=== PATIENT | male | born 1960 | race Caucasian/White ===

== ENCOUNTER 2017-05-26 08:43 | Inpatient (IN) | payer OTHER ==
[2017-05-26 09:18] VITALS: BP 189/90; PULSE 95; TEMP 98.9; BMI 27.7
[2017-05-26] MEDS ORDERED: SODIUM CHLORIDE 1,000 ML IV STA ×2 (09:29→13:09)
[2017-05-26] MEDS ORDERED: METOCLOPRAMIDE HCL INJECTION 10 MG/2 ML VIAL IVPUSH ONE (09:29)
[2017-05-26] MEDS ORDERED: METOCLOPRAMIDE HCL INJECTION 10 MG/2 ML VIAL ONE (09:36)
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
[2017-05-26] MEDS ORDERED: KETOROLAC TROMETHAMINE 30 MG/1 ML VIAL IVPUSH ONE (10:04)
[2017-05-26 11:02] LABS: BASO % 0.5 % (0-2.0); EOS % 0.4 % (0-4.5); HEMATOCRIT 49.3 % (35.4-49); LYMPH % 12.4 % (8-40); MCHC 32.4 g/dl (32.0-35.9); MEAN CELL VOLUME 92.5 fl (80-96); MEAN PLT VOLUME 9.9 fl (7.5-11.1); MONO % 5.9 % (3.8-10.2); NEUT % 80.8 % (42.8-82.8); PLATELET COUNT 180 K/MM3 (134-434); RBC 5.33 M/mm3 (4.00-5.60); RDW 13.5 % (11.9-15.9); WHITE BLOOD COUNT 13.5 K/mm3 (4.0-10.0)
[2017-05-26 11:13] LABS: ALBUMIN 4.2 g/dl (3.4-5.0); ANION GAP 7 (8-16); BILIRUBIN,TOTAL 0.7 mg/dL (0.2-1.0); BLOOD UREA NITROGEN 9 mg/dL (7-18); CALCIUM 9.5 mg/dL (8.5-10.1); CHLORIDE 106 mmol/L (98-107); CO2 27 mmol/L (21-32); CREATININE 0.9 mg/dL (0.7-1.3); GLUCOSE,RANDOM 94 mg/dL (74-106); LIPASE 132 U/L (73-393); SGOT/AST 56 U/L (15-37); SGPT/ALT 105 U/L (12-78); SODIUM 140 mmol/L (136-145)
[2017-05-26 11:14] LABS: ALK PHOS 141 U/L (45-117)
[2017-05-26] MEDS ORDERED: morphine CARPU-JECT 4 MG/1 ML DISP.SYRIN IVPUSH ONE (12:57)
[2017-05-26] MEDS ORDERED: KETOROLAC TROMETHAMINE 30 MG/1 ML VIAL ONE (13:36)
--- NOTE | 2017-05-26 13:54 | CONSULT ---
Consult Consult Specialty:: general surgery Referred by:: lynne turcios - ED Reason for Consultation:: abdominal pain - History of Present Illness Chief Complaint: abdominal pain History of Present Illness: 56yo male PMH seizure disorder, glioblastoma multiforme?, hep C, and hypertension, presented with reported acute onset right upper abdominal pain at 5AM. No association with meals. pain is focal to the right upper quadrant that has been ongoing for several days, worsened this morning with several episodes of non-bloody, non-bilious nausea, vomiting. Denies fevers but felt chills. Known history of gallstones, an previous episodes of biliary colic, planned to see Dr. Drummond but pain returned prior to his scheduled appointment. No change in bowel movements, dysuria or hematuria. He has had previous unknown laparoscopic abdominal surgery in the . We were asked to assess. 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, Other (Glioblastoma Multiforme) Cardio/Vascular: Yes: HTN Hepatobiliary: Yes: Hepatitis C Psych: Yes: Anxiety - Alcohol/Substance Use Hx Alcohol Use: No - Smoking History Smoking history: Never smoked Have you smoked in the past 12 months: Yes Aproximately how many cigarettes per day: 8 Home Medications - Allergies Allergies/Adverse Reactions: Allergies Allergy/AdvReac Type Severity Reaction Status Date / Time Penicillins Allergy Verified 05/26/17 09:18 - Home Medications Home Medications: Ambulatory Orders FENTANYL 75mcg PATCH [DURAGESIC 75mcg PATCH -] 1 each TD Q72H 11/05/14 Diclofenac Sodium [Diclofenac Sodium ER] 50 mg PO BID 11/13/14 Baclofen [Lioresal -] 10 mg PO TID 12/06/15 Lacosamide [Vimpat -] 100 mg PO BID 12/06/15 Metoclopramide HCl [Reglan] 5 mg PO AC 12/06/15 Quetiapine Fumarate [Seroquel -] 25 mg PO HS 12/06/15 Ranitidine [Zantac -] 150 mg PO BID 12/06/15 Zolpidem Tartrate [Ambien] 10 mg PO HS 12/06/15 Review of Systems - Review of Systems Constitutional: reports: Chills. denies: Diaphoresis, Fever, Weakness Eyes: denies: Blurred Vision, Recent Change in Vision HENT: reports: Other (missing central and lateral inscisors). denies: Difficult Swallowing, Throat Pain Neck: denies: Lumps, Swollen Glands Cardiovascular: denies: Chest Pain, Palpitations Respiratory: denies: Cough, SOB Gastrointestinal: reports: Abdominal Pain. denies: Constipation, Diarrhea, Indigestion Genitourinary: reports: Flank Pain (right flank pain). denies: Burning, Discharge Musculoskeletal: denies: Extremity Pain, Muscle Weakness Integumentary: denies: Lesions, Rash Neurological: reports: Seizure. denies: Change in LOC, Syncope Endocrine: denies: Excessive Sweating, Flushing Hematology/Lymphatic: denies: Easily Bruised, Excessive Bleeding Psychiatric: reports: Anxiety Pain Intensity: 8 Physical Exam Vital Signs: Vital Signs Temperature 98.9 F 05/26/17 08:43 Pulse Rate 95 H 05/26/17 08:43 Respiratory Rate 18 05/26/17 08:43 Blood Pressure 189/90 05/26/17 08:43 O2 Sat by Pulse Oximetry (%) 100 05/26/17 08:43 Vital Signs Period Temp Pulse Resp BP Sys/Howell Pulse Ox Last 24 Hr 98.9 F 95 18 189/90 100 Constitutional: Yes: Well Nourished, Calm, Mild Distress Eyes: Yes: Conjunctiva Clear, EOM Intact HENT: Yes: Atraumatic, Normocephalic Cardiovascular: Yes: Regular Rate and Rhythm, S1, S2. No: Murmur Respiratory: Yes: Regular, CTA Bilaterally Gastrointestinal: Yes: Normal Bowel Sounds, Soft, Palpable Mass (RUQ palpable GB below liver margin), Tenderness (RUQ tenderness and +murphys sign.), Tenderness, Epigastrium, Tenderness, Rebound. No: Distention, Vomiting ...Rectal Exam: Yes: Deferred Renal/: Yes: CVA Tenderness - Right (equivocal on CVA punches, referred anterior pain.). No: CVA Tenderness - Left Extremities: No: Cool, Cyanosis Edema: No Peripheral Pulses WNL: Yes Integumentary: No: Jaundice, Rash Wound/Incision: Yes: Clean/Dry, Well Approximated Neurological: Yes: Alert, Oriented Psychiatric: Yes: Alert, Oriented Labs: CBC,CMP WBC 13.5 K/mm3 (4.0-10.0) H D 05/26/17 10:45 RBC 5.33 M/mm3 (4.00-5.60) 05/26/17 10:45 Hgb 16.0 GM/dL (11.7-16.9) 05/26/17 10:45 Hct 49.3 % (35.4-49) H 05/26/17 10:45 MCV 92.5 fl (80-96) 05/26/17 10:45 MCH 30.0 pg (25.7-33.7) 05/26/17 10:45 MCHC 32.4 g/dl (32.0-35.9) 05/26/17 10:45 RDW 13.5 % (11.9-15.9) 05/26/17 10:45 Plt Count 180 K/MM3 (134-434) 05/26/17 10:45 MPV 9.9 fl (7.5-11.1) 05/26/17 10:45 Neutrophils % 80.8 % (42.8-82.8) D 05/26/17 10:45 Lymphocytes % 12.4 % (8-40) D 05/26/17 10:45 Monocytes % 5.9 % (3.8-10.2) 05/26/17 10:45 Eosinophils % 0.4 % (0-4.5) D 05/26/17 10:45 Basophils % 0.5 % (0-2.0) 05/26/17 10:45 Sodium 140 mmol/L (136-145) 05/26/17 10:45 Potassium 4.0 mmol/L (3.5-5.1) 05/26/17 10:45 Chloride 106 mmol/L (98-107) 05/26/17 10:45 Carbon Dioxide 27 mmol/L (21-32) 05/26/17 10:45 Anion Gap 7 (8-16) L 05/26/17 10:45 BUN 9 mg/dL (7-18) D 05/26/17 10:45 Creatinine 0.9 mg/dL (0.7-1.3) D 05/26/17 10:45 Creat Clearance w eGFR > 60 (>60) 05/26/17 10:45 Random Glucose 94 mg/dL (74-106) 05/26/17 10:45 Calcium 9.5 mg/dL (8.5-10.1) 05/26/17 10:45 Total Bilirubin 0.7 mg/dL (0.2-1.0) D 05/26/17 10:45 AST 56 U/L (15-37) H D 05/26/17 10:45 ALT 105 U/L (12-78) H 05/26/17 10:45 Alkaline Phosphatase 141 U/L (45-117) H D 05/26/17 10:45 Total Protein 9.0 g/dl (6.4-8.2) H 05/26/17 10:45 Albumin 4.2 g/dl (3.4-5.0) 05/26/17 10:45 Lipase 132 U/L (73-393) 05/26/17 10:45 Imaging - Results Cat Scan: Report Reviewed, Image Reviewed (Large distended GB with stones) Ultrasound: Report Reviewed, Image Reviewed (Abd US 10.23cm GB very distended, 0.27cm CBD, no thickening or percholecystic fluid, stones at the neck) Problem List - Problems (1) Calculous cholecystitis with obstruction Assessment/Plan: 56yo male with MMP presents with right upper abdominal pain, US shows a 10cm distended GB with stones, CBD 0.27cm. WBC 13.5, Tbili 0.7 and transaminitis, Lisa class. previous CT shows the same, on exam he has +brush's and exquisitely tender. clears now, NPO after midnight IVF hydration antiemetic repeat labs in AM stat keppra level Plan for OR for urgent Laparoscopic Cholecystectomy possible Open Cholecystectomy -- Discussed with patient risks, benefits and alternatives of laparoscopic possible open cholecystectomy, including but not limited to bleeding, infection, injury to adjacent structures, leak or injury, intraabdominal abscess, need for further procedures, ; alternatives include antibiotics, delayed or no surgery - risks of this include failure of nonoperative therapy, perforation, sepsis, recurrence, . Patient desires to proceed with operation - will take to OR for above. Informed consent signed for same. Code(s): K80.01 - CALCULUS OF GALLBLADDER W ACUTE CHOLECYSTITIS W OBSTRUCTION (2) Right upper quadrant pain Code(s): R10.11 - RIGHT UPPER QUADRANT PAIN (3) Seizures Code(s): R56.9 - UNSPECIFIED CONVULSIONS Qualifiers: Convulsion type: unspecified Qualified Code(s): R56.9 - Unspecified convulsions (4) Hypertension Code(s): I10 - ESSENTIAL (PRIMARY) HYPERTENSION (5) Hepatitis C Code(s): B19.20 - UNSPECIFIED VIRAL HEPATITIS C WITHOUT HEPATIC COMA (6) Renal colic on right side Code(s): N23 - UNSPECIFIED RENAL COLIC
[2017-05-26] MEDS ORDERED: ONDANSETRON 4 MG/2 ML VIAL IVPB ONE (14:00)
[2017-05-26] MEDS ORDERED: levETIRAcetam 500 MG TABLET (FP) PO ONE ×2 (14:23→14:53)
[2017-05-26] MEDS ORDERED: amLODIPine BESYLATE 5 MG TABLET (FP) PO ONE (14:23)
[2017-05-26] MEDS ORDERED: LISINOPRIL 20 MG TABLET (FP) PO ONE (14:23)
[2017-05-26] MEDS ORDERED: RANITIDINE HCL 150 MG TABLET (FP) PO ONE (14:24)
[2017-05-26] MEDS ORDERED: GABAPENTIN 300 MG CAPSULE (FP) PO ONE (14:24)
[2017-05-26] MEDS ORDERED: HYDROmorphone HCL CARPU-JECT 2 MG/1 ML DISP.SYRIN IVPB ONE (14:25)
[2017-05-26] MEDS ORDERED: LISINOPRIL 10 MG TABLET (FP) PO ONE (14:41)
[2017-05-26] MEDS ORDERED: HYDROmorphone HCL CARPU-JECT 2 MG/1 ML DISP.SYRIN ONE (14:52)
[2017-05-26] MEDS ORDERED: LISINOPRIL 5 MG TABLET (FP) ONE (14:53)
[2017-05-26] MEDS ORDERED: GABAPENTIN 100 MG CAPSULE (FP) ONE (14:53)
[2017-05-26] MEDS ORDERED: amLODIPine BESYLATE 5 MG TABLET (FP) ONE (14:53)
[2017-05-26] MEDS ORDERED: ONDANSETRON 4 MG/2 ML VIAL ONE (14:56)
[2017-05-26 16:17] LABS: HEMATOCRIT 46.1 % (35.4-49); HEMOGLOBIN 15.2 GM/dL (11.7-16.9); MCH 30.4 pg (25.7-33.7); MEAN CELL VOLUME 92.2 fl (80-96); MEAN PLT VOLUME 9.3 fl (7.5-11.1); PLATELET COUNT 179 K/MM3 (134-434); RDW 13.5 % (11.9-15.9); WHITE BLOOD COUNT 11.4 K/mm3 (4.0-10.0)
[2017-05-26 16:51] LABS: ALBUMIN 3.5 g/dl (3.4-5.0); ALK PHOS 116 U/L (45-117); ANION GAP 6 (8-16); BLOOD UREA NITROGEN 8 mg/dL (7-18); CALCIUM 8.3 mg/dL (8.5-10.1); CHLORIDE 111 mmol/L (98-107); CO2 26 mmol/L (21-32); CREATININE 0.6 mg/dL (0.7-1.3); GLUCOSE,RANDOM 93 mg/dL (74-106); SGOT/AST 45 U/L (15-37); SGPT/ALT 87 U/L (12-78); SODIUM 143 mmol/L (136-145); TOT PROT 7.5 g/dl (6.4-8.2)
[2017-05-26 17:41] LABS: BILIRUBIN,TOTAL 0.7 mg/dL (0.2-1.0)
[2017-05-26] MEDS ORDERED: Lacosamide 200 MG/20 ML VIAL IVPB SCH (22:00)
== END 2017-05-26 17:00 | disposition left against medical advice (07) ==
LOC: JER 08:43 → JERBED 14:30
PROVIDERS: ADMIT Family Medicine; ATTEND Family Medicine
DX: K80.01 Calculus of gallbladder with acute cholecystitis with obstruction (principal); I10 Essential (primary) hypertension; R10.11 Right upper quadrant pain; G40.909 Epilepsy, unspecified, not intractable, without status epilepticus; B19.20 Unspecified viral hepatitis C without hepatic coma; N23 Unspecified renal colic
CPT/HCPCS: 36415; 76705-TC; 76775-TC; 80053; 83690; 85025; 85027; 99283-25

== ENCOUNTER 2017-05-29 08:10 | Day surgery (SDC) | payer OTHER ==
[2017-05-29 08:20] VITALS: BMI 27.7
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
--- NOTE | 2017-05-29 08:27 | CONSULT ---
Consult Consult Specialty:: general surgery Referred by:: geovanni Reason for Consultation:: acute on chronic cholecystitis - History of Present Illness Chief Complaint: acute on chronic cholecystitis History of Present Illness: 56yo male PMH seizure disorder, glioblastoma multiforme?, hep C, and hypertension, presented with reported acute onset right upper abdominal pain at 5AM. No association with meals. pain is focal to the right upper quadrant that has been ongoing for several days, worsened this morning with several episodes of non-bloody, non-bilious nausea, vomiting. Denies fevers but felt chills. Known history of gallstones, an previous episodes of biliary colic, planned to see Dr. Drummond but pain returned prior to his scheduled appointment. No change in bowel movements, dysuria or hematuria. He has had previous unknown laparoscopic abdominal surgery in the . He eloped from the ED 2 days ago, He now returned for treatment. We were asked to assess. 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, Other (Glioblastoma Multiforme) Cardio/Vascular: Yes: HTN Hepatobiliary: Yes: Hepatitis C Psych: Yes: Anxiety - Alcohol/Substance Use Hx Alcohol Use: No - Smoking History Smoking history: Current every day smoker Have you smoked in the past 12 months: Yes Aproximately how many cigarettes per day: 10 Home Medications - Allergies Allergies/Adverse Reactions: Allergies Allergy/AdvReac Type Severity Reaction Status Date / Time Penicillins Allergy Verified 05/29/17 08:20 - Home Medications Home Medications: Ambulatory Orders FENTANYL 75mcg PATCH [DURAGESIC 75mcg PATCH -] 1 each TD Q72H 11/05/14 Diclofenac Sodium [Diclofenac Sodium ER] 50 mg PO BID 11/13/14 Baclofen [Lioresal -] 10 mg PO TID 12/06/15 Lacosamide [Vimpat -] 100 mg PO BID 12/06/15 Ranitidine [Zantac -] 150 mg PO BID 12/06/15 Amlodipine Besylate [Norvasc -] 5 mg PO DAILY 05/26/17 Gabapentin 300 mg PO DAILY 05/26/17 Keppra - 1,000 mg PO BID 05/26/17 Lisinopril 10 mg PO DAILY 05/26/17 Review of Systems - Review of Systems Constitutional: denies: Chills, Fever Eyes: denies: Blurred Vision, Recent Change in Vision HENT: denies: Difficult Swallowing, Throat Pain Neck: denies: Decreased ROM, Pain on Movement Cardiovascular: denies: Chest Pain, Palpitations Respiratory: denies: Cough, SOB Gastrointestinal: denies: Abdominal Pain, Constipation, Diarrhea Genitourinary: denies: Burning, Discharge Breasts: reports: No Symptoms Reported. denies: Pain Musculoskeletal: denies: Joint Pain, Joint Swelling Integumentary: denies: Lesions, Rash Neurological: denies: Seizure, Syncope Endocrine: denies: Unexplained Weight Gain, Unexplained Weight Loss Hematology/Lymphatic: denies: Easily Bruised, Excessive Bleeding Psychiatric: denies: Anxiety, Depression Physical Exam Vital Signs: Vital Signs Temperature 98.3 F 05/29/17 08:17 Pulse Rate 89 05/29/17 08:17 Respiratory Rate 20 05/29/17 08:17 Blood Pressure 113/66 05/29/17 08:17 O2 Sat by Pulse Oximetry (%) 96 05/29/17 08:17 Constitutional: Yes: No Distress, Calm Eyes: Yes: Conjunctiva Clear, EOM Intact HENT: Yes: Atraumatic, Normocephalic Neck: Yes: Supple, Trachea Midline Cardiovascular: Yes: Regular Rate and Rhythm, S1, S2 Respiratory: Yes: Regular, CTA Bilaterally Gastrointestinal: Yes: Normal Bowel Sounds, Soft, Tenderness (RUQ) ...Rectal Exam: Yes: Deferred Renal/: No: CVA Tenderness - Left, CVA Tenderness - Right Extremities: No: Cool, Cyanosis Integumentary: No: Jaundice, Rash Neurological: Yes: Alert, Oriented Psychiatric: Yes: Alert, Oriented Imaging - Results Cat Scan: Report Reviewed, Image Reviewed (10cm distended GB with large stone) Ultrasound: Report Reviewed, Image Reviewed (CBD 0.27) Problem List - Problems (1) Calculous cholecystitis with obstruction Assessment/Plan: 56yo male with MMP presents with right upper abdominal pain, US shows a 10cm distended GB with stones, CBD 0.27cm. WBC 13.5, Tbili 0.7 and transaminitis, Lisa class. previous CT shows the same, on exam he has +brush's and exquisitely tender. NPO after midnight IVF hydration antiemetic repeat labs in AM stat keppra level Plan for OR for urgent Laparoscopic Cholecystectomy possible Open Cholecystectomy -- Discussed with patient risks, benefits and alternatives of laparoscopic possible open cholecystectomy, including but not limited to bleeding, infection, injury to adjacent structures, leak or injury, intraabdominal abscess, need for further procedures, ; alternatives include antibiotics, delayed or no surgery - risks of this include failure of nonoperative therapy, perforation, sepsis, recurrence, . Patient desires to proceed with operation - will take to OR for above. Informed consent signed for same. Code(s): K80.01 - CALCULUS OF GALLBLADDER W ACUTE CHOLECYSTITIS W OBSTRUCTION (2) Abdominal pain Code(s): R10.9 - UNSPECIFIED ABDOMINAL PAIN (3) Hepatitis C Code(s): B19.20 - UNSPECIFIED VIRAL HEPATITIS C WITHOUT HEPATIC COMA (4) Hypertension Code(s): I10 - ESSENTIAL (PRIMARY) HYPERTENSION (5) Seizures Code(s): R56.9 - UNSPECIFIED CONVULSIONS Qualifiers: Convulsion type: unspecified Qualified Code(s): R56.9 - Unspecified convulsions
[2017-05-29] MEDS ORDERED: levETIRAcetam 500 MG TABLET (FP) PO ONE ×2 (08:45→08:51)
[2017-05-29 09:40] LABS: URINE APPEARANCE CLEAR; URINE BILIRUBIN NEGATIVE (NEGATIVE); URINE BLOOD 1+ (NEGATIVE); URINE COLOR AMBER; URINE GLUCOSE (UA) NEGATIVE (NEGATIVE); URINE KETONE NEGATIVE (NEGATIVE); URINE NITRITE NEGATIVE (NEGATIVE); URINE PROTEIN NEGATIVE (NEGATIVE); URINE UROBILINOGEN 4.0 E.U/dl mg/dL (0.2-1.0)
[2017-05-29 09:51] LABS: URINE LEUK ESTERASE 2+ (NEGATIVE)
[2017-05-29 09:51] LABS: BASO % 1.2 % (0-2.0); EOS % 2.3 % (0-4.5); HEMATOCRIT 48.3 % (35.4-49); LYMPH % 26.3 % (8-40); MCH 30.6 pg (25.7-33.7); MCHC 33.2 g/dl (32.0-35.9); MEAN CELL VOLUME 92.2 fl (80-96); MEAN PLT VOLUME 10.3 fl (7.5-11.1); MONO % 7.9 % (3.8-10.2); NEUT % 62.3 % (42.8-82.8); PLATELET COUNT 177 K/MM3 (134-434); RBC 5.23 M/mm3 (4.00-5.60); RDW 13.4 % (11.9-15.9); WHITE BLOOD COUNT 9.6 K/mm3 (4.0-10.0)
[2017-05-29 10:13] LABS: EPI CELLS RARE /HPF (FEW); URINE MUCUS MODERATE
[2017-05-29 10:37] LABS: ALBUMIN 3.9 g/dl (3.4-5.0); ALK PHOS 139 U/L (45-117); ANION GAP 8 (8-16); BILIRUBIN,TOTAL 0.8 mg/dL (0.2-1.0); BLOOD UREA NITROGEN 12 mg/dL (7-18); CALCIUM 8.9 mg/dL (8.5-10.1); CHLORIDE 107 mmol/L (98-107); CO2 26 mmol/L (21-32); CREATININE 0.7 mg/dL (0.7-1.3); GLUCOSE,RANDOM 80 mg/dL (74-106); LIPASE 110 U/L (73-393); SGPT/ALT 99 U/L (12-78); SODIUM 141 mmol/L (136-145); TOT PROT 8.5 g/dl (6.4-8.2)
[2017-05-29 10:45] LABS: POTASSIUM 4.4 mmol/L (3.5-5.1); SGOT/AST 68 U/L (15-37)
[2017-05-29] MEDS ORDERED: BUPIVACAINE HCL/PF 0.5% (5MG/ML) 10 ML VIAL ONE (10:50)
--- NOTE | 2017-05-29 11:09 | HP ---
Admitting History and Physical - Primary Care Physician PCP: Jodie Her - Admission Chief Complaint: cholecystitis History of Present Illness: 56yo male PMH seizure disorder, glioblastoma multiforme?, hep C, and hypertension, presented with reported acute onset right upper abdominal pain at 5AM. No association with meals. pain is focal to the right upper quadrant that has been ongoing for several days, worsened this morning with several episodes of non-bloody, non-bilious nausea, vomiting. Denies fevers but felt chills. Known history of gallstones, an previous episodes of biliary colic, planned to see Dr. Drummond but pain returned prior to his scheduled appointment. No change in bowel movements, dysuria or hematuria. He has had previous unknown laparoscopic abdominal surgery in the . He eloped from the ED 2 days ago, He now returned for treatment. 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, Other (Glioblastoma Multiforme) Cardiovascular: Yes: HTN Hepatobiliary: Yes: Hepatitis C Psych: Yes: Anxiety - Smoking History Smoking history: Current every day smoker Have you smoked in the past 12 months: Yes Aproximately how many cigarettes per day: 10 - Alcohol/Substance Use Hx Alcohol Use: No Home Medications - Allergies Allergies/Adverse Reactions: Allergies Allergy/AdvReac Type Severity Reaction Status Date / Time Penicillins Allergy Verified 05/29/17 08:20 - Home Medications Home Medications: Ambulatory Orders FENTANYL 75mcg PATCH [DURAGESIC 75mcg PATCH -] 1 each TD Q72H 11/05/14 Diclofenac Sodium [Diclofenac Sodium ER] 50 mg PO BID 11/13/14 Baclofen [Lioresal -] 10 mg PO TID 12/06/15 Lacosamide [Vimpat -] 100 mg PO BID 12/06/15 Ranitidine [Zantac -] 150 mg PO BID 12/06/15 Amlodipine Besylate [Norvasc -] 5 mg PO DAILY 05/26/17 Gabapentin 300 mg PO DAILY 05/26/17 Keppra - 1,000 mg PO BID 05/26/17 Lisinopril 10 mg PO DAILY 05/26/17 Review of Systems - Review of Systems Constitutional: denies: Chills, Fever Eyes: denies: Blind Spots, Recent Change in Vision HENT: denies: Difficult Swallowing, Throat Pain Cardiovascular: denies: Chest Pain, Palpitations Respiratory: denies: Cough, Exercise Intolerance Gastrointestinal: reports: Abdominal Pain Genitourinary: denies: Burning, Discharge Musculoskeletal: reports: Back Pain Integumentary: denies: Lesions, Rash Neurological: denies: Seizure, Syncope Endocrine: denies: Unexplained Weight Gain, Unexplained Weight Loss Hematology/Lymphatic: denies: Easily Bruised, Excessive Bleeding Psychiatric: denies: Anxiety, Depression Physical Examination Vital Signs: Vital Signs Temperature 98.3 F 05/29/17 08:17 Pulse Rate 60 05/29/17 10:25 Respiratory Rate 18 05/29/17 10:25 Blood Pressure 120/67 05/29/17 10:25 O2 Sat by Pulse Oximetry (%) 96 05/29/17 08:17 Constitutional: Yes: Well Nourished, No Distress Eyes: Yes: Conjunctiva Clear, EOM Intact HENT: Yes: Atraumatic, Normocephalic Neck: Yes: Supple, Trachea Midline Cardiovascular: Yes: Regular Rate and Rhythm, S1, S2. No: Murmur Respiratory: Yes: Regular, CTA Bilaterally Gastrointestinal: Yes: Normal Bowel Sounds, Soft, Tenderness (RUQ) ...Rectal Exam: Yes: Deferred Renal/: No: CVA Tenderness - Left, CVA Tenderness - Right Musculoskeletal: Yes: Back Pain Extremities: No: Cool, Cyanosis Edema: No Peripheral Pulses WNL: Yes Peripheral Pulses: Left Doralis Pedis: 2+, Right Dorsalis Pedis: 2+ Integumentary: No: Jaundice, Rash Neurological: Yes: Alert, Oriented Psychiatric: Yes: Alert, Oriented Labs: CBC, BMP 05/29/17 08:00 05/29/17 08:00 CBC,CMP WBC 9.6 K/mm3 (4.0-10.0) 05/29/17 08:00 RBC 5.23 M/mm3 (4.00-5.60) 05/29/17 08:00 Hgb 16.0 GM/dL (11.7-16.9) 05/29/17 08:00 Hct 48.3 % (35.4-49) 05/29/17 08:00 MCV 92.2 fl (80-96) 05/29/17 08:00 MCH 30.6 pg (25.7-33.7) 05/29/17 08:00 MCHC 33.2 g/dl (32.0-35.9) 05/29/17 08:00 RDW 13.4 % (11.9-15.9) 05/29/17 08:00 Plt Count 177 K/MM3 (134-434) 05/29/17 08:00 MPV 10.3 fl (7.5-11.1) D 05/29/17 08:00 Neutrophils % 62.3 % (42.8-82.8) D 05/29/17 08:00 Lymphocytes % 26.3 % (8-40) D 05/29/17 08:00 Monocytes % 7.9 % (3.8-10.2) 05/29/17 08:00 Eosinophils % 2.3 % (0-4.5) D 05/29/17 08:00 Basophils % 1.2 % (0-2.0) 05/29/17 08:00 Sodium 141 mmol/L (136-145) 05/29/17 08:00 Potassium 4.4 mmol/L (3.5-5.1) 05/29/17 08:00 Chloride 107 mmol/L (98-107) 05/29/17 08:00 Carbon Dioxide 26 mmol/L (21-32) 05/29/17 08:00 Anion Gap 8 (8-16) 05/29/17 08:00 BUN 12 mg/dL (7-18) D 05/29/17 08:00 Creatinine 0.7 mg/dL (0.7-1.3) 05/29/17 08:00 Creat Clearance w eGFR > 60 (>60) 05/29/17 08:00 Random Glucose 80 mg/dL (74-106) 05/29/17 08:00 Calcium 8.9 mg/dL (8.5-10.1) 05/29/17 08:00 Total Bilirubin 0.8 mg/dL (0.2-1.0) 05/29/17 08:00 AST 68 U/L (15-37) H D 05/29/17 08:00 ALT 99 U/L (12-78) H 05/29/17 08:00 Alkaline Phosphatase 139 U/L (45-117) H 05/29/17 08:00 Total Protein 8.5 g/dl (6.4-8.2) H 05/29/17 08:00 Albumin 3.9 g/dl (3.4-5.0) 05/29/17 08:00 Lipase 110 U/L (73-393) 05/29/17 08:00 Problem List - Problems (1) Calculous cholecystitis with obstruction Assessment/Plan: 56yo male with MMP presents with right upper abdominal pain, US shows a 10cm distended GB with stones, CBD 0.27cm. WBC 13.5, Tbili 0.7 and transaminitis, Lisa class. previous CT shows the same, on exam he has +brush's and exquisitely tender. NPO after midnight IVF hydration antiemetic repeat labs in AM stat keppra level Plan for OR for urgent Laparoscopic Cholecystectomy possible Open Cholecystectomy -- Discussed with patient risks, benefits and alternatives of laparoscopic possible open cholecystectomy, including but not limited to bleeding, infection, injury to adjacent structures, leak or injury, intraabdominal abscess, need for further procedures, ; alternatives include antibiotics, delayed or no surgery - risks of this include failure of nonoperative therapy, perforation, sepsis, recurrence, . Patient desires to proceed with operation - will take to OR for above. Informed consent signed for same. Code(s): K80.01 - CALCULUS OF GALLBLADDER W ACUTE CHOLECYSTITIS W OBSTRUCTION (2) Abdominal pain Code(s): R10.9 - UNSPECIFIED ABDOMINAL PAIN (3) Hepatitis C Code(s): B19.20 - UNSPECIFIED VIRAL HEPATITIS C WITHOUT HEPATIC COMA (4) Hypertension Code(s): I10 - ESSENTIAL (PRIMARY) HYPERTENSION (5) Seizures Code(s): R56.9 - UNSPECIFIED CONVULSIONS Qualifiers: Convulsion type: unspecified Qualified Code(s): R56.9 - Unspecified convulsions
[2017-05-29] MEDS ORDERED: BUPIVACAINE HCL/PF 0.5% (5MG/ML) 10 ML VIAL IJ ONE ×2 (11:50→12:51)
[2017-05-29] MEDS ORDERED: ONDANSETRON 4 MG/2 ML VIAL IVPUSH PRN (13:16)
[2017-05-29] MEDS ORDERED: oxyCODONE HCL 5 MG TABLET PO PRN (13:16)
[2017-05-29] MEDS ORDERED: PROMETHAZINE HCL 25 MG/1 ML VIAL IVPUSH PRN (13:16)
[2017-05-29] MEDS ORDERED: LACTATED RINGERS SOLUTION 1,000 ML IV SCH (13:30)
--- NOTE | 2017-05-29 13:34 | OP ---
Operative Note - Note: Operative Date: 05/29/17 Pre-Operative Diagnosis: chronic cholecystitis Operation: Laparoscopic cholecystetctomy Findings: long distended gall bladder with stone, critical view was identified. counts were correct Post-Operative Diagnosis: Same as Pre-op Surgeon: Reilly Alvarado Shop Manager: Andrez Daniel Anesthesiologist/LICENSED [employer] BROKER: Danyell Ponce Anesthesia: General, Local (marcaine 05.% 20ml) Specimens Removed: gallbaldder and stone Estimated Blood Loss (mls): 10 Drains & Tubes with Location: none Fluid Volume Replaced (mls): 1,000 Operative Report Dictated: Yes
[2017-05-29] MEDS: ACETAMINOPHEN 1000 MG/100 ML VIAL (NON FORMULARY) IVPB ONE ×2 (14:30→14:31)
[2017-05-29 14:44] VITALS: TEMP 98.2
[2017-05-29] MEDS ORDERED: oxyCODONE HCL 5 MG TABLET ONE (16:49)
[2017-05-29 17:43] VITALS: BP 152/72; PULSE 80
--- NOTE | 2017-05-30 12:22 | EKG ---
Test Reason : Blood Pressure : / mmHG Vent. Rate : 065 BPM Atrial Rate : 065 BPM P-R Int : 160 ms QRS Dur : 088 ms QT Int : 396 ms P-R-T Axes : 068 043 043 degrees QTc Int : 411 ms NORMAL SINUS RHYTHM POSSIBLE LEFT ATRIAL ENLARGEMENT BORDERLINE ECG WHEN COMPARED WITH ECG OF 10-JUL-2014 21:14, NO SIGNIFICANT CHANGE WAS FOUND Confirmed by MD DARLIN, LAURA ([id number]) on 05/30/2017 12:21:54 PM Referred By: Confirmed By:LAURA SAEED MD
--- NOTE | 2017-06-02 12:41 | OP ---
DATE OF OPERATION: 05/29/2017 PREOPERATIVE DIAGNOSIS: Chronic cholecystitis. POSTOPERATIVE DIAGNOSIS: Chronic cholecystitis. PROCEDURE: Laparoscopic cholecystectomy. ATTENDING SURGEON: Reilly Alvarado MD MERCHANDISE FOR RESALE PURCHASING AGENT: Andrez Daniel MD ANESTHESIA: General with local. Local consisted of 0.5% Marcaine given at the port sites. ESTIMATED BLOOD LOSS: 10 mL INTRAVENOUS FLUID GIVEN: 1 L SPECIMEN: Gallbladder with stones. INDICATION: Patient is a 56-year-old male presenting with chronic cholecystitis, right upper quadrant pain, confirmed to have a large distended gallbladder, 10 cm in maximum length and diameter, with a stone at the neck. He was seen in the emergency room, counseled regarding risks, benefits, and alternatives to surgical laparoscopic cholecystectomy; signed informed consent; was taken to procedure. DESCRIPTION OF PROCEDURE: Patient was brought to the operating room, placed in supine position on the operating table with the arms extended 90 degrees perpendicular to the body's axis. The bilateral lower extremities had SCDs placed. He was induced with general anesthesia, endotracheally intubated. He was clipped and prepped on the anterior abdominal wall. The right arm was tucked. We proceeded then with a formal timeout, identifying the operative procedure and all parties in agreement. We proceeded first with marking the supraumbilical area for Josseline entry. Additional markings were made in the right subchondral area 2 fingerbreadths below the margin and at the xiphisternum. After the timeout was completed, incision was made with a 15-blade scalpel, deepened and widened through subcutaneous tissue with Bovie cautery. Care was taken to dissect down to the linea alba of the midline in the supraumbilical area. It was identified and elevated into the field. At which point, we proceeded then with a sharp entry into the midline fascia. Kochers were applied, and then, a blunt finger dissection used to clear the umbilical area of any adhesive bands of omentum. Care was then taken to insert a 12-mm Josseline port, inflating the balloon. A 5-mm 0-degree scope was then inserted into the abdomen, inspecting the site for any unintended damage. There appeared to be none. We began to then localize the gallbladder's dome. The patient was repositioned into reverse Trendelenburg to facilitate the bowel falling away from the liver's margin. Additional 5-mm trocars were installed in the right abdomen in [address] and at the xiphisternum. These were all done under direct visualization with care taken not to injure of the intraabdominal structures. We then proceeded to identify the gallbladder's dome, peeling a small amount of omentum away from it and retracting it cranially. The dissection was carried from lateral to medial, allowing for dissection of the adhesive bands to the gallbladder itself which appeared large and distended. Upon identifying the infundibulum with traction towards the right side of the abdomen, allowing for the junction of the cystic duct and the gallbladder to be identified, it was encircled and dissected. The Calot's node was identified as well. After completing the dissection of the cystic duct and cystic artery, the critical view was identified. At which point, 5-mm clips were used to control each structure, two proximal and one distal in each case, allowed for control of the cystic duct and cystic artery. They were transected, followed by dissection of the gallbladder away from the hepatic plate using Bovie cautery. This was carried from the triangle of Calot distally towards the dome of the gallbladder. This was done for repositioning at several points to allow for adequate dissection away from the liver itself and keeping the capsule intact. When completed, the gallbladder itself was retrieved. The camera was resited to the xiphisternum, and an Endo Catch bag size 10 mm was inserted into the umbilical Josseline and then used to retrieve the gallbladder. Once removed from the abdomen, a Josseline was re-installed into the abdomen and pneumoperitoneum re-established, and the liver itself was inspected for hemostasis. This was obtained using Bovie cautery where necessary, and decision was made to not leave a drain in. The trocars were removed under direct visualization. With all irrigation suctioned from the abdomen and patient level, the umbilical port was then tied with 0 Vicryl in a figure-of-8, ablating the Josseline entry port. The skin was cleaned and closed with 4-0 Vicryl in subcutaneous fashion. The skin was cleaned. Benzoin and Steri-Strips were applied, and a gauze and Tegaderm used to cover the Steri-Strip closure. The patient was awoken from general anesthesia, having tolerated the procedure well, received Marcaine at the port sites prior to awakening the patient. He remained stable throughout the procedure. Counts were correct at the end of the case. MD TONY Zimmerman/[id number]
--- NOTE | 2017-06-05 17:11 | PATH ---
Surgical Pathology Report Patient Name: LUCIEN AGEE [facility]. Rec. #: [id number] /Age/Gender: 1960 (Age: 56) / M Account: [id number] Location: AMBULATORY SURG Taken: 05/29/2017 Received: 05/29/2017 Reported: 06/05/2017 Physicians: Reilly Alvarado M.D. Specimen(s) Received GALLBLADDER DISTENTED Clinical History Chronic cholecystitis Final Diagnosis GALLBLADDER, LAPAROSCOPIC CHOLECYSTECTOMY: CHRONIC CHOLECYSTITIS AND CHOLELITHIASIS. Electronically Signed Claudette Adrian M.D. Gross Description Received in formalin, labeled "gallbladder," is a 9.3 x 4.0 x 3.8 cm. gallbladder with a 0.2 cm. in length portion of cystic duct attached. The outer surface is green and varies from smooth to shaggy. The lumen contains green, tenacious bile as well as a 1.7 cm in greatest dimension yellow, spherical cholelith. The mucosa is green and velvety. The wall of the gallbladder measures 0.1 cm. in thickness. Thread Clipper sections are submitted in one cassette. /05/30/2017 saudi05/30/2017
== END 2017-05-29 17:35 | disposition home or self-care (01) ==
LOC: JER 08:10 → JASUSAT 08:28 → JERBED 08:28 → UNDOADMIN 08:28 → JASUSAT 17:35
PROVIDERS: ATTEND Family Medicine
PROC: 0FT44ZZ Resection of Gallbladder, Percutaneous Endoscopic Approach (ICD-10-PCS; principal; 2017-05-29 15:30)
DX: K81.1 Chronic cholecystitis (principal)
CPT/HCPCS: 36415; 71045-TC; 80053; 81003; 81015; 83690; 85025; 88304-TC; 93005; 93010; 94760; 99283-25